=== PATIENT | male | born 1975 | race Caucasian/White ===

== ENCOUNTER 2022-11-24 09:26 | Emergency (ER) | payer OTHER, SELFPAY ==
[2022-11-24 09:27] VITALS: BP 158/74; PULSE 73; RESP 18; TEMP 36.6; O2SAT 99; BMI 28.8
--- NOTE | 2022-11-24 09:38 | RAD_ITS ---
STUDY: X-RAY - RIGHT HAND REASON FOR EXAM: Male, 47 years old. Pain following injury. TECHNIQUE: view(s) of the hand. COMPARISON: None. FINDINGS: Normal radiocarpal articulation. Normal distal radioulnar joint. Normal visualized carpal bones. Normal carpal articulations Normal carpometacarpal articulation of the thumb. Normal second through fifth carpometacarpal joints. Nondisplaced oblique fracture of the midportion of the fourth metacarpal. Normal metacarpophalangeal joint of the thumb. Normal interphalangeal joint of the thumb. Normal proximal and distal phalanges of the thumb. Normal metacarpophalangeal joints of the second through fifth fingers. Normal proximal and distal interphalangeal joints of the second through fifth fingers. Normal phalanges of the second through fifth fingers. Soft tissue swelling. RAD/Hand Min 3 Views IMPRESSION: Nondisplaced oblique fracture of the midportion of the fourth metacarpal with overlying soft tissue swelling. Electronically Signed: Craig Cole MD at 10:11 EST ,
--- NOTE | 2022-11-24 09:39 | EDS_ITS ---
HPI History of Present Illness Chief Complaint: Upper Extremity Injury Detail of Chief Complaint: Right hand injury/pain Informant: patient Narrative Narrative: Patient presents to the emergency department after injuring his right hand this morning. Patient states that he was using a large drill when the drill grabbed and hand twisted. Patient is right-hand dominant. He denies other injuries. He does not want to claim this under Workmen's Comp. PFSH PFSH Medical History no medical history Home Medications hydrocodone-acetaminophen 5-325mg 5mg-325mg 1 tab PO Q4H PRN PRN Pain 2 days #10 TABLETS 11/24/22 [Rx Last Taken Unknown] Allergy/AdvReac Type Severity Reaction Status Date / Time No Known Allergies Allergy Verified 11/24/22 09:26 Surgical History no surgical history Social History Smoking Status: Never smoker ROS ROS ED Review of Systems ROS Unobtainable: other Constitutional Constitutional ED: Reports lethargy; Denies chills, fever(s), sweats or weight loss Eyes Eyes: Denies blurry vision, change in vision or diplopia ENT ENT ED: Denies rhinorrhea or sore throat Cardiovascular Cardiovascular: Denies chest pain, orthopnea or racing heartbeat Respiratory/Chest Respiratory/Chest: Denies cough, dyspnea, dyspnea on exertion, orthopnea or sputum Gastrointestinal Gastrointestinal: Denies abdominal pain, diarrhea, nausea or vomiting Genitourinary Genitourinary ED: Denies dysuria, hematuria or urinary frequency Musculoskeletal Musculoskeletal: Reports other Details: Right hand pain/injury ; Denies arthralgias, back pain, myalgias or neck pain Integumentary Denies abscess, Abrasions or rash Neurologic Neurologic: Denies headache(s) or weakness Psychiatric Psychiatric: Denies anxiety, depression or suicidal thoughts Endocrine Endocrinology: Denies polydipsia, polyphagia or polyuria Hematologic/Lymphatic Hematologic/Lymphatic: Denies easy bleeding, easy bruising or lymphadenopathy Allergic/Immunologic Allergic/Immunologic ED: Denies mouth swelling, tongue swelling or urticaria EXAM Physical Exam Const Vital Signs: 11/24/22 09:27 Temperature 97.8 F Temperature Source Temporal Pulse Rate 73 Respiratory Rate 18 Blood Pressure 158/74 H Blood Pressure Mean 102 Pulse Ox 99 Oxygen Delivery Method Room Air Positive well nourished and well developed General Appearance ED: well developed and NAD HEENT Reports TM's clear and moist mucous membranes normocephalic and atraumatic; Negative for trauma or tenderness Tympanic Membrane ED: Yes TM's clear Eyes PERRL and EOMs intact bilaterally General Eye ED: Negative for pale conjunctiva or scleral icterus Neck no lymphadenopathy, supple and no JVD General: Negative for tenderness Chest Wall inspection of chest normal and palpation of chest normal Chest: Negative for tenderness Resp normal respiratory effort and clear to auscultation bilaterally Effort and Inspection: Negative for respiratory distress or pain with movement Auscultation: Negative for rhonchi, wheezes or diminished lung sounds Cardio regular rate, regular rhythm, S1 normal heart sound, S2 normal heart sound and no murmurs Peripheral Pulses: pulses 2+ throughout GI normal to inspection, nondistended, normoactive bowel sounds, soft to palpation, non-tender, non-distended and no masses Back/Spine no CVA tenderness and no thoracic nor lumbar tenderness Extremity normal to inspection Extremity Narrative: Right hand-patient has some soft tissue swelling over the dorsum of the right hand and tenderness to palpation over the fourth metacarpal. Patient has good range of motion flexion extension of all digits. No pain at the wrist. He is neurovascular intact. General Extremety ED: Negative for edema General Extremity: Negative for edema Neuro oriented x3, CN's II-XII intact bilaterally, no sensory deficits noted and gait normal Sensorium / Orientation: awake, alert, oriented to person, oriented to place and oriented to time Motor Exam: strength 5/5 throughout and strength abnormal Psych mental status grossly normal Skin no rashes or lesions noted and no wounds MDM MDM MDM Narrative Medical decision making narrative: Patient had x-rays of the right hand obtained which showed a fracture of the fourth metacarpal. Patient was placed in a AP splint fabricated by myself. We given a sling. He had no rings on his fingers. He is instructed to ice and elevate the extremity. I will write him a prescription for few [place] for pain. Will refer to orthopedics for follow-up. Radiography Diagnostic Testing: Three-view x-rays of right hand obtained interpreted by myself as fracture of the fourth metacarpal spiral like with no significant displacement. Radiology in agreement. Discharge Plan Triage Chief Complaint: Upper Extremity Injury ED Provider: Jeancarlos Coburn Dx/Rx/DC Orders Clinical Impression: Hand fracture, right Instructions: ED Closed Hand Fracture (Adult) Prescriptions: New hydrocodone-acetaminophen [hydrocodone-acetaminophen] 5-325 mg tablet 1 tab PO Q4H PRN PRN (Reason: Pain) 2 Days Qty: 10 0RF Primary Care Provider: Care Physician,No Primary Referrals: David Sevilla MD [Med Staff - Active Staff] - 3-5 Days Care Physician,No Primary [Primary Care Provider] - Disposition Disposition: Home, Self Care
== END 2022-11-24 10:28 | disposition home or self-care (01) ==
PROVIDERS: Emergency Provider Emergency Medicine; Visit Provider Emergency Medicine
DX: S62.91XA Unspecified fracture of right hand, initial encounter for closed fracture (principal); X50.1XXA Overexertion from prolonged static or awkward postures, initial encounter; Y99.0 Civilian activity done for income or pay
CPT/HCPCS: 73130; 99282